=== PATIENT | female | born 1940 | race Caucasian/White ===

== ENCOUNTER 2022-12-26 14:18 | Outpatient (CLI) | payer MEDICARE | END 2022-12-26 14:19 | disposition home or self-care (01) | LOC: NAV RAD 14:18 | PROVIDERS: ATTEND Family Medicine | DX: M25.462 Effusion, left knee (principal); M17.12 Unilateral primary osteoarthritis, left knee ==

== ENCOUNTER 2023-01-01 10:20 | Emergency (ER) | payer MEDICARE | END 2023-01-01 11:40 | disposition home or self-care (01) | LOC: NAV ERS 10:20 | DX: M17.12 Unilateral primary osteoarthritis, left knee (principal); E78.5 Hyperlipidemia, unspecified; I10 Essential (primary) hypertension ==